=== PATIENT | female | born 1985 | race African-American/Black ===

== ENCOUNTER 2020-09-05 11:31 | Emergency (ER) | payer MEDICAID ==
[~2020-09-05] VITALS: Ht 167.6 cm; Wt 70.0 kg
[2020-09-05] MEDS: HYDROCODONE/ACETAMINOPHEN 5/325MG TABLET PO ONE (12:00)
[2020-09-05] MEDS: KETOROLAC 30MG/ML VIAL IM ONE (12:00)
[2020-09-05 13:03] LABS: CLARITY URINE CLEAR (CLEAR); COLOR URINE YELLOW (YELLOW); KETONES URINE NEGATIVE (NEGATIVE); LEUKOCYTE ESTERASE URINE TRACE (NEGATIVE); NITRITE URINE NEGATIVE (NEGATIVE); OCCULT BLOOD URINE 3+ (NEGATIVE); PH URINE 5.5 (4.5-8.0); PROTEIN URINE TRACE (NEGATIVE)
[2020-09-05] MEDS: METHOCARBAMOL 500MG TABLET PO ONE (13:55)
[2020-09-05 14:34] VITALS: BP 122/81
== END 2020-09-05 14:45 | disposition home or self-care (01) ==
LOC: ER 11:31
DX: M54.16 Radiculopathy, lumbar region (principal); Z98.890 Other specified postprocedural states
CPT/HCPCS: 72100; 81003; 81025; 96372; 99284; J1885